=== PATIENT | female | born 1970 | race Caucasian/White ===

== ENCOUNTER 2016-11-16 07:26 | Day surgery (SDC) | payer OTHER ==
[~2016-11-16 07:26] MED LIST: Buffered Lidocaine 0.9% SYRIN* 5 ML/SYR SYRINGE INTRADERM ONE; ceFOXitin 2 GM IVPREMIX* 2 GM/50 ML BAG ONE
[2016-11-16] MEDS ORDERED: fentaNYL* 50 MCG/ML 2 ML VIAL (100 MCG VIAL) ONE (08:27)
[2016-11-16] MEDS ORDERED: Midazolam* 1 MG/ML 2 ML VIAL (2 MG) ONE ×2 (08:27→09:00)
[2016-11-16] MEDS ORDERED: Ondansetron INJ* 2 MG/ML VIAL ONE (09:02)
[2016-11-16] MEDS ORDERED: Dexamethasone IV* 4 MG/ML 1 ML (4 MG) ONE (09:02)
[2016-11-16] MEDS ORDERED: Lidocaine 2% PF * 5 ML VIAL ONE (09:02)
[2016-11-16] MEDS ORDERED: Ketorolac INJ* 30 MG/ML 1 ML VIAL ONE (09:02)
[2016-11-16] MEDS ORDERED: Propofol* 10 MG/ML 20 ML BTL IV PUSH ONE (09:02)
[2016-11-16] MEDS ORDERED: Famotidine IV* 10 MG/ML 2 ML (20 mg) ONE (09:02)
[2016-11-16] MEDS ORDERED: Acetaminophen TAB* 325 MG PO PRN (09:16)
[2016-11-16] MEDS ORDERED: Levalbuterol 0.63MG/3ML NEB INH PRN (09:16)
[2016-11-16] MEDS ORDERED: fentaNYL* 50 MCG/ML 2 ML VIAL (100 MCG VIAL) IV PRN (09:16)
[2016-11-16] MEDS ORDERED: HYDROcodone/ACETAMIN 5-325 MG* 1 TAB PO PRN (09:16)
[2016-11-16] MEDS ORDERED: PROCHLORPERAZINE INJ 5 MG/ML 2 ML VIAL IV PRN (09:16)
[2016-11-16] MEDS ORDERED: Ondansetron INJ* 2 MG/ML VIAL IV PRN (09:16)
[2016-11-16] MEDS ORDERED: HYDROmorphone* 1 MG/ML 1 ML SYR IV PRN (09:16)
[2016-11-16] MEDS ORDERED: HYDROcodone/ACETAMIN 5-325 MG* 1 TAB ONE (10:01)
[2016-11-16 10:31] VITALS: BP 94/75
--- NOTE | 2016-11-17 02:19 | OP ---
OPERATIVE REPORT: DATE OF OPERATION: 11/16/16 DATE OF : 74 SURGEON: Malena Eddy MD COMMISSION AUDITOR: None. PRE-OP DIAGNOSIS: Intrauterine mass and menometrorrhagia. POST-OP DIAGNOSIS: Intrauterine mass and menometrorrhagia. OPERATIVE PROCEDURE: Dilation and curettage, hysteroscopic resection of polyps. ESTIMATED BLOOD LOSS: Minimal, deficit 61 mL. URINE OUTPUT: 300 mL of clear yellow urine. FLUIDS: 600 mL of crystalloid. FINDINGS: Revealed normal tubal ostia seen bilaterally. Small polyps coming off the posterior uter ine wall, resected in toto. SPECIMENS: Endometrial curettings. COMPLICATIONS: None apparent. DISPOSITION: Stable, to recovery room. DESCRIPTION OF PROCEDURE: The patient was placed in dorsal lithotomy position. Legs were placed in the universal Gustavo stirrups. The perineum and vagina were prepped and draped in a standard ster ile fashion. The patient was identified with universal protocol. Self-Cath was used to drain the b ladder for 300 mL of clear yellow urine. Self-Cath was removed. Speculum was inserted, cervix was visualized and grasped on the anterior lip with a single-toothed tenaculum, and dilated to #25 Gregg dilator. MyoSure hysteroscope was then inserted. Uterine cavity was clearly visualized. A polyp was noted coming off the posterior wall. At that point, a sharp curettage was performed. Hysterosc ope was then reinserted after the sharp curettage. Polyp was still noted to be present. At that po int, a polyp resection was carried out in a standard fashion using a small MyoSure resecting device. The resection was carried out without complications under direct visualization. The hysteroscope was then removed after completion of removal of the polyp. Single- toothed tenaculum was removed, m inimal bleeding was noted, sterile tenaculum was removed. All sponge, instrument, and blade counts were correct at the end of the case. The patient tolerated the procedure well and went to the [facility] room in stable condition. [id number] #: [id number]
== END 2016-11-16 10:47 | disposition home or self-care (01) ==
LOC: OR 07:26
PROVIDERS: ATTEND Obstetrics & Gynecology
DX: N92.0 Excessive and frequent menstruation with regular cycle (principal); N84.0 Polyp of corpus uteri; I10 Essential (primary) hypertension; J45.909 Unspecified asthma, uncomplicated; F17.210 Nicotine dependence, cigarettes, uncomplicated; E11.9 Type 2 diabetes mellitus without complications; Z79.4 Long term (current) use of insulin; Z79.84 Long term (current) use of oral hypoglycemic drugs
CPT/HCPCS: 36415; 86850; 86900; 86901; 88305; J0694; J1100; J1885; J2250; J2405; J2704; J3010